=== PATIENT | male | born 1945 | race Caucasian/White ===

== ENCOUNTER 2024-03-13 11:21 | Emergency (ER) | payer OTHER, SELFPAY ==
[2024-03-13 11:32] VITALS: BP 184/102
[2024-03-13 11:56] LABS: % Basophils 0.2 % (0-2); % Eosinophils 1.3 % (0-6); % Immature Granulocytes 0.2 % (0-0.5); % Lymphocytes 15.9 % (20.5-51.1); % Monocytes 6.3 % (1.7-9.3); % Neutrophils 76.1 % (42.2-75.2); Absolute Eosinophils 0.1 10^3/uL (0-0.7); Absolute Monocytes 0.4 10^3/uL (0.1-0.6); Absolute Neutrophils 4.6 10^3/uL (1.4-6.5); Hematocrit 41.9 % (39.0-52.0); Hemoglobin 14.7 g/dL (13.0-18.0); Mean Corp Hgb Conc. 35.1 g/dL (33.0-37.0); Mean Corpuscular Hgb 33.5 pg (27.0-31.0); Mean Corpuscular Volume 95.4 fL (80.0-94.0); Mean Platelet Volume 10.2 fL (7.4-10.4); Nucleated Red Blood Cells % 0 % (-); Platelet Count 161 10^3/uL (130-400); Red Blood Cell Count 4.39 10^6/uL (4.70-6.10)
[2024-03-13 12:18] LABS: ALT (SGPT) 36 U/L (0-50); AST (SGOT) 45 U/L (17-59); Albumin 4.7 g/dl (3.5-5.0); Alkaline Phosphatase 44 U/L (38-126); Blood Urea Nitrogen 14 mg/dl (9-20); Calcium 9.8 mg/dl (8.4-10.2); Carbon Dioxide 28 mmol/L (22-30); Chloride 104 mmol/L (98-107); Glucose 130 mg/dl (70-99); Potassium 4.2 mmol/L (3.5-5.1); Sodium 140 mmol/L (135-145); Total Bilirubin 1.5 mg/dl (0.2-1.3); Total Protein 7.7 g/dl (6.3-8.2); eGFR > 60.00
[2024-03-13 12:19] VITALS: BMI 28.7
[2024-03-13 12:20] VITALS: BP 137/95
[2024-03-13 12:24] LABS: INR 1.26; PT 15.6 Sec (11.4-14.6)
[2024-03-13 12:27] LABS: NT-proBNP 1650 pg/ml; Troponin I < 0.012 ng/ml
[2024-03-13 13:00] VITALS: BP 139/98
--- NOTE | 2024-03-13 14:21 | ED.GENMED ---
History of Present Illness
General
Chief Complaint: Blood Pressure Problem
Source: patient
Exam Limitations: none
Time Seen by Provider: 03/13/24 13:53
Travel History
Have you had any contact with someone who has COVID-19?: No
Do you have any symptoms of coronavirus? Fever > 100 degrees, chills, cough, shortness of breath, sore throat, loss of taste or smell, muscle aches, or headache?: No
History of Present Illness
History of Present Illness:
79 y/o M with h/o HTN, afib on eliqius
here with sob at 3 am
pt says he woke up and went to the bathroom and noticed he was SOB
he had no difficulty walking to and from the bathroom but he had trouble lying flat
he tried to get comfortable
took him a few hours but he never went back to sleep so at 6 am got up and took his BP which was 220/110 which is very unusual for him
iut came down to 180/90 afer derinking water
took his meds
and came to the ER
now he feels better
bp down to 130/90s
pt has no pleuritic pain, ches tpain, leg swelling, cough
Past History
Past History
ED Past Medical History: Cancer (Prostate), HTN and Hypercholesterolemia
ED Past Surgical History: Urological (Prostatectomy) and Other (Left eye surgery, hernia repair)
Social History
Tobacco: Non-smoker
Alcohol: Daily
Drug: None
Personal:
Living: with family
Employment: Retired
Phy Exam
Physical Exam
Physical Exam:
GENERAL: Alert , in no apparent distress very comfortable, well appearing
EYE: pupils equal and reactive
NECK: Supple
ENT: o/p clr, mmm.
CARDIAC: bradycardic 50s, slightly irregular, no edema
LUNGS: Clear breath sounds bilaterally, no acute respiratory distress, no wheezes/rales/rhonchi
ABDOMEN: Soft, without focal tenderness, no r/g, no cvat, normal bowel sounds
NEUROLOGICAL: Alert and oriented, no focal neuro deficits
SKIN: Warm and dry, skin intact.
MUSCULOSKELETAL: No edema, well perfused. neg avis's sign
PSYCH: Normal and appropriate interaction.
Course
Orders/Labs/Results
Orders:
Orders
03/13/24 11:33
EKG [Electrocardiogram (*1)] Urgent
Reason for Study: Shortness of Breath
EKG- Treatment ONCE
CR Chest - 2 Views Urgent
Comment:
Reason For Exam: SOB
03/13/24 11:41
Complete Blood Count/With Diff Urgent
Comprehensive Metabolic Panel Urgent
Pro-BNP [NT-proBNP] Urgent
Prothrombin Time Urgent
Troponin I Urgent
03/13/24 15:09
Furosemide [Lasix] 40 mg PO NOW STA
Abnormal Lab Results
03/13/24
11:41
RBC 4.39 L 10^6/uL
(4.70-6.10)
MCV 95.4 H fL
(80.0-94.0)
MCH 33.5 H pg
(27.0-31.0)
Absolute Lymphs (auto) 1.0 L 10^3/uL
(1.2-3.4)
Neutrophils % 76.1 H %
(42.2-75.2)
Lymphocytes % 15.9 L %
(20.5-51.1)
PT 15.6 H Sec
(11.4-14.6)
Glucose 130 H mg/dl
(70-99)
Total Bilirubin 1.5 H mg/dl
(0.2-1.3)
03/13/24 11:41
03/13/24 11:41
Vital Signs
Initial and Last Documented VS:
Initial Vital Signs
Temp Pulse Resp BP Pulse Ox
97.9 F 55 17 184/102 99
03/13/24 11:32 03/13/24 11:32 03/13/24 11:32 03/13/24 11:32 03/13/24 11:32
Last Documented Vital Signs
Temp Pulse Resp BP Pulse Ox
97.9 F 62 17 139/98 94
03/13/24 11:32 03/13/24 15:20 03/13/24 13:00 03/13/24 15:20 03/13/24 14:45
MDM/Problems Addressed
Differential Diagnosis Includes:
CHF, hypertensive urgency, less likely ACS, dissection
MDM/Problems Addressed:
79-year-old male with a history of hypertension, A-fib on Eliquis presents for an episode of dyspnea when he got up to use the bathroom at 3 AM. He says he was dyspneic for couple of hours having a difficult time laying all the way flat in bed.
Ultimately he got up at 6 AM and checked his blood pressure which was 200/110. Its never been this high. He rechecked it a few times and it did come down to 180/90 but never lower than that so he decided to come to the hospital. By the time he
got here around noon he has not had any symptoms. He feels well. His blood pressure is now down to 130/90. He took his meds this morning. He never had any exertional chest pain or chest pain at rest, leg swelling. On exam the patient has heart
rate in the 50s which is stable for him, slow A-fib on EKG, no hypoxia. His lungs are clear without crackles, he has no edema, there is no appreciated murmur. He looks very comfortable. Patient's labs show a BNP elevation of 1600, troponin was
normal, kidneys were normal. I spoke with Dr. Diego on-call for cardiology regarding this patient, it is his primary patient. I reviewed that the patient last had an echo 3 years ago which showed some mild abnormalities but his EF was normal. I
discussed whether the patient should be treated with Lasix and admitted or if he can trial Lasix as an outpatient for prompt follow-up with cardiology. Patient would strongly prefer to go home and Dr. Diego agreed with this with recommendation of
Lasix 40 mg once a day for the next several days, I will give him a small potassium supplement, and have him repeat his labs in a week. He will reach out to the cardiology office to get the patient an appointment this week so that he can get an
echocardiogram. I suspect that the patient's symptoms were due to hypertensive urgency but since it has resolved and the patient feels well agree with discharge home. He was ambulatory around the department without any desats and no dyspnea
*Critical Care Note
Total Time (30-74mins, 75-104mins- exclusive of procedures): Not Applicable
ED Attending Note
-
Portions of this chart may have been created with voice recognition software.� Occasional wrong word or��sound alike� substitutions may have occurred due to the inherent limitations of voice recognition software.
Discharge Plan
Departure
Patient Disposition: Home (Routine Discharge)
Date of Disposition: 03/13/24
Time of Disposition: 15:05
Patient with high blood pressure during this ER visit?: Yes
Condition: Fair
Covid-19: Not Applicable
Discharge Problem:
Hypertension, Breath shortness
Instructions: High Blood Pressure (DC)
Prescriptions:
New
furosemide [Lasix] 40 mg tablet
40 mg PO DAILY Qty: 4 0RF
potassium chloride 10 mEq packet
10 meq PO DAILY 4 Days Qty: 4 0RF
No Action
lidocaine 5 % adhesive patch,medicated
1 patch topical DAILY Qty: 15 0RF
Rx Instructions:
remove after 12 hrs
Referrals:
[facility], [Other]
Toney Conrad MD [Family Provider] -
Activity Restrictions/Additional Instructions:
Your symptoms could have been from your blood pressure being elevated. I spoke with your copywriting intern because your blood pressure came down to a more normal number and we decided that we should treat you with a few days of a water pill called Lasix
40 mg once a day for the next 4 days starting tomorrow. You should take potassium once a day 10 mEq each of the days that you are on Lasix.
Dr. Diego is reaching out to the office to get you an appointment. You may need an echocardiogram.
You should watch her symptoms very closely because if you have worsening or recurring symptoms at home over the weekend you should return to the ER immediately. Also return for any chest discomfort, passing out, leg swelling etc.
Interventions
Interventions:
*Risk Screen - Suicide Last Done: 03/13/24 11:32
*General Assessment Last Done: 03/13/24 11:32
*Neglect/Abuse Screening Last Done: 03/13/24 11:32
ED- Fall Risk Assessment Last Done: 03/13/24 12:19
*ED COVID-19 Vaccine History Last Done: 03/13/24 11:32
ED- Cardiac Assessment Last Done: 03/13/24 12:19
ED- Neurological Assessment Last Done: 03/13/24 12:19
ED- Pulmonary Assessment Last Done: 03/13/24 12:19
Discharge Date and Time
Print Language: AZERI
[2024-03-13] MEDS: LASIX 40 MG PO (15:20)
== END 2024-03-13 15:54 | disposition home or self-care (01) ==
LOC: EMR 11:21
PROVIDERS: Emergency Medicine; EMERGENCY PHYSICIAN Emergency Medicine; FAMILY PHYSICIAN Family Medicine
DX: R06.02 Shortness of breath (principal); I10 Essential (primary) hypertension; I48.91 Unspecified atrial fibrillation; Z79.01 Long term (current) use of anticoagulants
CPT/HCPCS: 99284; 71046; 80053; 83880; 84484; 85025; 85610; 93005

== ENCOUNTER → 2024-06-07 09:23 | Outpatient (REF) | payer OTHER, SELFPAY ==
[2024-06-07 11:51] LABS: Albumin 4.4 g/dl (3.5-5.0); Blood Urea Nitrogen 15 mg/dl (9-20); Calcium 9.5 mg/dl (8.4-10.2); Carbon Dioxide 26 mmol/L (22-30); Chloride 103 mmol/L (98-107); Glucose 110 mg/dl (70-99); Phosphorus 3.7 mg/dl (2.5-4.5); Potassium 4.7 mmol/L (3.5-5.1); Sodium 137 mmol/L (135-145); eGFR > 60.00
== END ==
LOC: HWLAB 09:23
PROVIDERS: ATTENDING PHYSICIAN Internal Medicine Cardiovascular Disease; FAMILY PHYSICIAN Family Medicine
DX: I10 Essential (primary) hypertension (principal)
CPT/HCPCS: 36415; 80048; 80069

== ENCOUNTER → 2024-06-14 08:09 | Outpatient (REF) | payer OTHER, SELFPAY | LOC: HWRCS 08:09 | PROVIDERS: ATTENDING PHYSICIAN Physician Assistant; FAMILY PHYSICIAN Family Medicine | DX: I48.91 Unspecified atrial fibrillation (principal); I10 Essential (primary) hypertension; I35.0 Nonrheumatic aortic (valve) stenosis; R06.02 Shortness of breath | CPT/HCPCS: 93306 ==

== ENCOUNTER → 2024-07-22 07:35 | Outpatient (REF) | payer OTHER, SELFPAY | LOC: DHCBC/DCA 07:35 | PROVIDERS: ATTENDING PHYSICIAN Internal Medicine Cardiovascular Disease; FAMILY PHYSICIAN Family Medicine | DX: R06.02 Shortness of breath (principal) | CPT/HCPCS: 78452; 93017; A9500; J2785 ==

== ENCOUNTER → 2024-08-17 08:56 | Outpatient (REF) | payer OTHER, SELFPAY | LOC: HWRAD 08:56 | PROVIDERS: ATTENDING PHYSICIAN Family Medicine | DX: R14.0 Abdominal distension (gaseous) (principal) | CPT/HCPCS: 76700 ==

== ENCOUNTER → 2025-03-16 07:50 | Outpatient (REF) | payer OTHER, SELFPAY | LOC: RAD 07:50 | PROVIDERS: ATTENDING PHYSICIAN Nurse Practitioner Family | DX: R19.09 Other intra-abdominal and pelvic swelling, mass and lump (principal) | CPT/HCPCS: 74177; Q9967 ==

== ENCOUNTER → 2025-11-12 08:19 | Outpatient (REF) | payer OTHER, SELFPAY | LOC: MRI 3T 08:19 | PROVIDERS: ATTENDING PHYSICIAN Nurse Practitioner Family | DX: N28.89 Other specified disorders of kidney and ureter (principal) | CPT/HCPCS: 74183 ==